=== PATIENT | male | born 1965 | race Caucasian/White ===

== ENCOUNTER 2021-05-07 15:41 | Emergency (ER) | payer BC, OTHER, SELFPAY ==
[2021-05-08 07:46] LABS: SARS-CoV-2 PCR by NAA Not Detected (NotDetected)
== END 2021-05-07 16:20 | disposition home or self-care (01) ==
LOC: MADERS 15:41
DX: Z20.822 Contact with and (suspected) exposure to COVID-19 (principal)
CPT/HCPCS: 99283; U0003; U0005